=== PATIENT | female | born 1985 | race Two or more races ===

== ENCOUNTER 2017-07-24 14:25 | Inpatient (IN) | payer OTHER ==
[~2017-07-24] VITALS: Ht 175.3 cm; Wt 100.0 kg
--- NOTE | ~2017-07-24 | OR ---
PATIENT'S NAME: ARIEL LAZARO [facility] AGE: 32 Y [address] ROOM: [place] [id number] LOCATION: GOBS ADMIT DATE: 07/24/2017 OR/Procedure Report DISCHARGE DATE: 07/25/2017 FAMILY PHYSICIAN: Timothy Bahena MD ATTENDING PHYSICIAN: Timothy Bahena SURGEON: Timothy Bahena MD COGNOS: DATE OF PROCEDURE: 07/24/2017 PROCEDURE: Spontaneous vaginal delivery. PREOPERATIVE DIAGNOSIS: Intrauterine at 41 weeks. POSTOPERATIVE DIAGNOSIS: Intrauterine at 41 weeks. DESCRIPTION OF PROCEDURE: This is a 4, para 2, at 41 weeks' gestational age, who presented in labor with cervix at 5 cm, 60%, bag of water is intact, having contractions every 4 minutes. She received an epidural, was 7 cm and then progressed rapidly to complete. Had artificial rupture of membranes with clear fluid. With pushing, delivered an 8-pound 5-ounce male in OP position at 1715 hours on 07/24/2017. scares 8 and 9. Nose and mouth were suctioned after delivery. The infant was placed on mother's abdomen, dried, and then placed skin to skin. Cord blood was then collected. Placenta was delivered intact with a 3-vessel cord. The cervix was viewed, there were no tears, there were no vaginal sidewall tears. There was a small second-degree midline tear, which was repaired with 3-0 chromic in the usual fashion. Estimated blood loss was 250 mL. Sponge and needle count were correct at the end of the procedure. Mom will continue with care and is planning to breastfeed. TIMOTHY BAHENA MD ASM/modl /[id number] d: t: 07/26/17 1235, OPERATIVE SUMMARY
[~2017-07-24 14:25] MED LIST: ACETAMINOPHEN325 MG PO; DERMOPLAST SPRA56 GM TOP; LANSINOH7 GM TOP; MOTRIN800 MG PO; PRENATAL 1+1)(P1 TAB PO; SURFAK240 MG PO; TUMS200 MG PO
[2017-07-24 15:32] LABS: BASOPHIL % 0.2 %; HEMATOCRIT 32.6 % (33.0-46.0); HEMOGLOBIN 10.6 g/dL (11.0-15.0); IMMATURE GRANULOCYTE % 0.2 %; LYMPHOCYTE # 1.5 K/uL (0.8-4.0); LYMPHOCYTE % 17.4 %; MCH 28.8 pg (27.0-34.0); MCHC 32.5 gm/dL (32.0-36.5); MCV 88.6 fl (83.0-98.0); MONOCYTE # 0.6 K/uL (0.0-1.0); MONOCYTE % 7.3 %; MPV 10.5 fl (9.4-12.4); NEUTROPHIL # (ANC) 6.4 K/uL (1.8-7.8); NEUTROPHIL % 74.9 %; NRBC % 0 /100WBC (0-0.00); PLATELET COUNT 201 K/uL (150-450); RBC 3.68 M/uL (3.50-5.50); RDW-CV 15.9 % (11.9-14.6); WBC 8.5 K/uL (4.0-11.0)
[2017-07-25 04:48] LABS: BASOPHIL % 0.2 %; EOSINOPHIL # 0.1 K/uL (0.0-0.5); EOSINOPHIL % 0.5 %; HEMATOCRIT 26.2 % (33.0-46.0); HEMOGLOBIN 8.6 g/dL (11.0-15.0); IMMATURE GRANULOCYTE # 0.1 K/uL (0.0-0.3); IMMATURE GRANULOCYTE % 0.4 %; LYMPHOCYTE # 2.5 K/uL (0.8-4.0); LYMPHOCYTE % 22.1 %; MCH 29.1 pg (27.0-34.0); MCHC 32.8 gm/dL (32.0-36.5); MCV 88.5 fl (83.0-98.0); MONOCYTE # 1.2 K/uL (0.0-1.0); MONOCYTE % 10.1 %; MPV 10.6 fl (9.4-12.4); NEUTROPHIL # (ANC) 7.6 K/uL (1.8-7.8); NEUTROPHIL % 66.7 %; NRBC % 0 /100WBC (0-0.00); PLATELET COUNT 179 K/uL (150-450); RBC 2.96 M/uL (3.50-5.50); WBC 11.4 K/uL (4.0-11.0)
[2017-07-25] MEDS ORDERED: SURFAK240 MG PO (18:05)
[2017-07-25] MEDS ORDERED: DERMOPLAST SPRA56 GM TOP (18:05)
[2017-07-25] MEDS ORDERED: LANSINOH7 GM TOP (18:06)
[2017-07-25] MEDS ORDERED: MOTRIN800 MG PO (18:06)
[2017-07-25] MEDS ORDERED: PERCOCET 5-3251 EACH PO (18:07)
[2017-07-25] MEDS ORDERED: PRENATAL 1+1)(P1 TAB PO (18:08)
== END 2017-07-25 20:10 | disposition disaster alternative care site (69) | DRG 775 ==
LOC: GOBM 14:25 → GOBS 14:25 → GOBM 14:38 → GOBS 15:41
PROVIDERS: ADMIT Family Medicine
PROC: 10E0XZZ Delivery of Products of Conception, External Approach (ICD-10-PCS; principal; 2017-07-24)
PROC: 10907ZC Drainage of Amniotic Fluid, Therapeutic from Products of Conception, Via Natural or Artificial Opening (ICD-10-PCS; principal; 2017-07-24)
PROC: 0KQM0ZZ Repair Perineum Muscle, Open Approach (ICD-10-PCS; principal; 2017-07-24)
DX: O48.0 Post-term pregnancy (principal); D62 Acute posthemorrhagic anemia; O70.1 Second degree perineal laceration during delivery; O99.03 Anemia complicating the puerperium; Z3A.41 41 weeks gestation of pregnancy; Z37.0 Single live birth
CPT/HCPCS: J2001; J2405; J2590; J3010; J7120